=== PATIENT | male | born 1995 | race Caucasian/White ===

== ENCOUNTER 2016-12-29 09:46 | Emergency (ER) | payer SELFPAY | END 2016-12-29 11:19 | disposition home or self-care (01) | LOC: D.ER 09:46 | DX: S51.012A Laceration without foreign body of left elbow, initial encounter (principal); W25.XXXA Contact with sharp glass, initial encounter; Y93.89 Activity, other specified; Y92.89 Other specified places as the place of occurrence of the external cause ==